=== PATIENT | female | born 1950 | race Caucasian/White ===

== ENCOUNTER → 2023-06-17 12:28 | Outpatient (REF) | payer OTHER, SELFPAY | LOC: WDC 12:28 | PROVIDERS: ATTENDING PHYSICIAN Obstetrics & Gynecology Gynecology; FAMILY PHYSICIAN Family Medicine | DX: Z12.31 Encounter for screening mammogram for malignant neoplasm of breast (principal) | CPT/HCPCS: 77063; 77067 ==

== ENCOUNTER → 2024-02-13 13:20 | Outpatient (REF) | payer OTHER, SELFPAY | LOC: RAD 13:20 | PROVIDERS: ATTENDING PHYSICIAN Internal Medicine Rheumatology; FAMILY PHYSICIAN Family Medicine | DX: M35.00 Sjogren syndrome, unspecified (principal); M79.641 Pain in right hand; M79.642 Pain in left hand | CPT/HCPCS: 73130 ==

== ENCOUNTER → 2024-03-17 12:54 | Outpatient (REF) | payer OTHER, SELFPAY | LOC: RAD 12:54 | PROVIDERS: ATTENDING PHYSICIAN Family Medicine | DX: M85.89 Other specified disorders of bone density and structure, multiple sites (principal); Z13.820 Encounter for screening for osteoporosis; Z78.0 Asymptomatic menopausal state | CPT/HCPCS: 77080 ==

== ENCOUNTER → 2024-06-17 12:30 | Outpatient (REF) | payer OTHER, SELFPAY | LOC: WDC 12:30 | PROVIDERS: ATTENDING PHYSICIAN Obstetrics & Gynecology Gynecology; FAMILY PHYSICIAN Family Medicine | DX: Z12.31 Encounter for screening mammogram for malignant neoplasm of breast (principal) | CPT/HCPCS: 77063; 77067 ==

== ENCOUNTER → 2025-02-03 12:45 | Outpatient (REF) | payer OTHER, SELFPAY | LOC: RCS 12:45 | PROVIDERS: ATTENDING PHYSICIAN Family Medicine | DX: I10 Essential (primary) hypertension (principal); I51.7 Cardiomegaly; I27.20 Pulmonary hypertension, unspecified; N18.31 Chronic kidney disease, stage 3a | CPT/HCPCS: 76770; 93306 ==